=== PATIENT | male | born 1985 | race Caucasian/White ===

== ENCOUNTER 2019-05-13 16:36 | Inpatient (IN) | payer OTHER ==
[2019-05-13 23:22] VITALS: BMI 23.3
--- NOTE | 2019-05-14 02:11 | HP ---
COWS - Scale Resting Pulse: 1= [place] 81-100 Sweatin=Flushed/Facial Moisture Restless Observation: 1= Difficult to Sit Still Pupil Size: 1= Pupils >than Normal Bone or Joint Aches: 2= Severe Diffuse Aches Runny Nose/ Eye Tearin= Runny Nose/Eyes GI Upset > 30mins: 1= Stomach Cramp Tremor Observation: 2= Slight Tremor Visible Yawning Observation: 0= None Anxiety or Irritability: 4=Extreme Anxiety Goose Flesh Skin: 0=Smooth Skin COWS Score: 16 CIWA Score Nausea/Vomitin-Mild Nausea/No Vomiting Muscle Tremors: 3 Anxiety: 3 Agitation: 3 Paroxysmal Sweats: 2 Orientation: 1-Uncertain about Date Tacttile Disturbances: 0-None Auditory Disturbances: 0-None Visual Disturbances: 0-None Headache: 2-Mild CIWA-Ar Total Score: 15 - Admission Criteria [facility] Guidelines: Admission for Medically Managed Detox: Requires at least one of the followin. CIWA greater than 12 2. Seizures within the past 24 hours 3. Delirium tremens within the past 24 hours 4. Hallucinations within the past 24 hours 5. Acute intervention needed for co occurring medical disorder 6. Acute intervention needed for co occurring psychiatric disorder 7. Severe withdrawal that cannot be handled at a lower level of care (continued vomiting, continued diarrhea, abnormal vital signs) requiring intravenous medication and/or fluids 8. Admission ROS [facility] Chief Complaint: Alcohol and heroin withdrawal symptoms Allergies/Adverse Reactions: Allergies Allergy/AdvReac Type Severity Reaction Status Date / Time No Known Allergies Allergy Verified 05/13/19 23:14 History of Present Illness: 33 years old male with a long history of heroin and alcohol withdrawal symptoms is seeking admission to detox. Patient has been in previous detox and reports 2 years of sobriety. He denies medical history and suicidal ideation at this time. Patient reports multiple blackouts from alcohol and heroin use. This is his first admission to [facility]. Exam Limitations: No Limitations - Ebola screening Have you traveled outside of the country in the last 21 days: No Have you had contact with anyone from an Ebola affected area: No Do you have a fever: No - Review of Systems Constitutional: Chills EENT: reports: No Symptoms Reported Respiratory: reports: No Symptoms reported Cardiac: reports: No Symptoms Reported GI: reports: Nausea, Poor Appetite, Poor Fluid Intake, Abdominal cramping : reports: No Symptoms Reported Musculoskeletal: reports: Back Pain, Muscle Pain Integumentary: reports: Dryness, Flushing Neuro: reports: Headache, Tremors Endocrine: reports: No Symptoms Reported Hematology: reports: No Symptoms Reported Psychiatric: reports: No Sypmtoms Reported, Anxious, Depressed Other Systems: Reviewed and Negative Patient History - Patient Medical History Hx Anemia: No Hx Asthma: No Hx Chronic Obstructive Pulmonary Disease (COPD): No Hx Cancer: No Hx Hypertension: No Hx Hypercholesterolemia: No Hx Pacemaker: No HX Cerebrovascular Accident: No Hx Seizures: No Hx Dementia: No Hx Diabetes: No Hx Gastrointestinal Disorders: No Hx Liver Disease: No Hx Genitourinary Disorders: No Hx Sexually Transmitted Disorders: No Hx Renal Disease (ESRD): No Hx Thyroid Disease: No Hx Human Immunodeficiency Virus (HIV): No Hx Hepatitis C: No Hx Depression: No Hx Suicide Attempt: No Hx Bipolar Disorder: No Hx Schizophrenia: No - Patient Surgical History Past Surgical History: Yes Hx Orthopedic Surgery: Yes (ROTATOR CUFF SURGERY 2002) - PPD History Previous Implant?: Yes Documented Results: Negative w/o proof Implanted On Prior R Admission?: No PPD to be Administered?: Yes - Reproductive History Patient is a Female of Child Bearing Age (11 -55 yrs old): No (male) - Smoking Cessation Smoking history: Current every day smoker Have you smoked in the past 12 months: Yes Aproximately how many cigarettes per day: 20 Hx Chewing Tobacco Use: No Initiated information on smoking cessation: Yes 'Breaking Loose' booklet given: 05/14/19 - Substance & Tx. History Hx Alcohol Use: Yes Hx Substance Use: Yes Substance Use Type: Alcohol, Heroin Hx Substance Use Treatment: Yes ([facility]) - Substances abused Alcohol Substance route: Oral Frequency: Daily Amount used: LIQUOR- 2 PINTS, BEER- 1 SIX PACK Age of first use: 12 Date of last use: 05/13/19 Heroin Substance route: Injection Frequency: Daily Amount used: 10 BAGS Age of first use: 21 Date of last use: 05/13/19 Family Disease History - Family Disease History Family History: Denies Admission Physical Exam BHS - Vital Signs Vital Signs: Vital Signs - 24 hr 05/13/19 05/14/19 23:13 01:36 Temperature 98.5 F 98.5 F Pulse Rate 86 86 Respiratory 16 18 Rate Blood Pressure 109/71 109/71 - Physical General Appearance: Yes: Moderate Distress, Tremorous, Anxious HEENTM: Yes: Within Normal Limits Respiratory: Yes: Lungs Clear, Normal Breath Sounds, No Respiratory Distress Neck: Yes: Supple Breast: Yes: Breast Exam Deferred Cardiology: Yes: Regular Rhythm, Regular Rate Abdominal: Yes: Normal Bowel Sounds Genitourinary: Yes: Within Normal Limits Back: Yes: Normal Inspection Musculoskeletal: Yes: Back pain, Joint Stiffness, Muscle Pain Extremities: Yes: Swelling Neurological: Yes: Alert, Normal Mood/Affect Integumentary: Yes: Warm Lymphatic: Yes: Within Normal Limits - Diagnostic (1) Opioid dependence with withdrawal Current Visit: Yes Status: Chronic (2) Alcohol dependence with uncomplicated withdrawal Current Visit: Yes Status: Acute (3) Nicotine dependence Current Visit: Yes Status: Chronic Qualifiers: Nicotine product type: cigarettes Substance use status: uncomplicated Qualified Code(s): F17.210 - Nicotine dependence, cigarettes, uncomplicated Cleared for Admission [facility] - Detox or Rehab [facility] Level of Care: Medically Managed Detox Regimen/Protocol: Methadone/Librium Breathalyzer - Breathalyzer Breathalyzer: 0 Urine Drug Screen - Test Device Lot number: [id number] Expiration date: 02/24/21 - Control Is test valid?: Yes - Results Drug screen NEGATIVE: No Urine drug screen results: FEN-Fentanyl Inpatient Rehab Admission - Rehab Decision to Admit Inpatient rehab admission?: No
[2019-05-14] MEDS ORDERED: METHOCARBAMOL 500 MG TABLET PO PRN (02:20)
[2019-05-14] MEDS ORDERED: cloNIDine HCL 0.1 MG TABLET PO PRN (02:20)
[2019-05-14] MEDS ORDERED: MAGNESIUM CITRATE 300 ML BOTTLE PO PRN (02:20)
[2019-05-14] MEDS ORDERED: hydrOXYzine PAMOATE 25 MG CAPSULE (FP) PO PRN (02:20)
[2019-05-14] MEDS ORDERED: chlordiazePOXIDE HCL 25 MG CAPSULE PO PRN (02:20)
[2019-05-14] MEDS ORDERED: ACETAMINOPHEN 325 MG TABLET (FP) PO PRN ×2 (02:20)
[2019-05-14] MEDS ORDERED: MAG HYDROX/AL HYDROX/SIMETH 30 ML UNIT-DOSE CUP PO PRN (02:20)
[2019-05-14] MEDS ORDERED: METHADONE HCL 10 MG TABLET (FOR DETOX USE ONLY) PO ONE (02:20)
[2019-05-14] MEDS ORDERED: MENTHOL/PHENOL 1 EACH UD MM PRN (02:20)
[2019-05-14] MEDS ORDERED: BISMUTH SUBSALICYLATE 524 MG/30 ML UD PO PRN (02:20)
[2019-05-14] MEDS ORDERED: MAGNESIUM HYDROX 2400MG/30ML ORAL SUSPENSION 30 ML CUP PO PRN (02:20)
[2019-05-14] MEDS: IBUPROFEN 400 MG TABLET (FP) PO PRN (03:52)
[2019-05-14] MEDS: chlordiazePOXIDE HCL 25 MG CAPSULE PO SCH ×4 (06:22→22:15)
[2019-05-14] MEDS: NICOTINE 21 MG/24 HOURS TOPICAL PATCH TD SCH (10:20)
[2019-05-14] MEDS: PRENATAL VITAMINS W/ FOLIC ACID TABLET (FP) PO SCH (10:20)
--- NOTE | 2019-05-14 11:17 | PN ---
S CIWA - CIWA Score Nausea/Vomitin-Mild Nausea/No Vomiting Muscle Tremors: 4-Moderate,w/Arms Extend Anxiety: 4-Mod. Anxious/Guarded Agitation: 4-Moderately Restless Paroxysmal Sweats: 1-Minimal Palms Moist Orientation: 0-Oriented Tacttile Disturbances: 0-None Auditory Disturbances: 0-None Visual Disturbances: 0-None Headache: 0-None Present CIWA-Ar Total Score: 14 BHS COWS - Scale Resting Pulse: 0= [place] 80 or Below Sweatin= Chills/Flushing Restless Observation: 0= Sits Still Pupil Size: 0= Normal to Room Light Bone or Joint Aches: 1= Mild Discomfort Runny Nose/ Eye Tearin= Nasal Congestion GI Upset > 30mins: 2= Nausea/Diarrhea Tremor Observation of Outstretched Hands: 2= Slight Tremor Visible Yawning Observation: 2= >3x During Session Anxiety or Irritability: 2=Irritable/Anxious Goose Flesh Skin: 3=Piloerection COWS Score: 14 S Progress Note (SOAP) Subjective: 33 years old male admitted on 05/14/19 for alcohol and opiate withdrawal sx feeling little better after received methadone and librium feeling tired prefers to sleep after breakfast Objective: 05/14/19 11:25 Vital Signs Temperature 98.1 F 05/14/19 09:09 Pulse Rate 80 05/14/19 09:09 Respiratory Rate 18 05/14/19 09:09 Blood Pressure 101/59 L 05/14/19 09:09 O2 Sat by Pulse Oximetry (%) 05/14/19 11:25 lab ordered for 05/16/19 Assessment: 05/14/19 11:26 alcohol and opiate withdrawal sx Plan: continue alcohol and opiate detox
--- NOTE | 2019-05-14 14:45 | EKG ---
Test Reason : Blood Pressure : / mmHG Vent. Rate : 086 BPM Atrial Rate : 086 BPM P-R Int : 118 ms QRS Dur : 094 ms QT Int : 406 ms P-R-T Axes : 062 071 049 degrees QTc Int : 485 ms NORMAL SINUS RHYTHM PROLONGED QT ABNORMAL ECG NO PREVIOUS ECGS AVAILABLE Confirmed by Herman Barahona MD ([id number]) on 05/14/2019 2:45:31 PM Referred By: RAMESH Confirmed By:Herman Barahona MD
[2019-05-14 17:08] LABS: PH,URINE 8.5 (5.0-8.0); URINE APPEARANCE CLEAR; URINE BILIRUBIN NEGATIVE (NEGATIVE); URINE COLOR YELLOW; URINE GLUCOSE (UA) NEGATIVE (NEGATIVE); URINE KETONE NEGATIVE (NEGATIVE); URINE LEUK ESTERASE NEGATIVE (NEGATIVE); URINE NITRITE NEGATIVE (NEGATIVE); URINE PROTEIN NEGATIVE (NEGATIVE)
[2019-05-14] MEDS: NICOTINE POLACRILEX 2 MG GUM BUC PRN (17:26)
[2019-05-14] MEDS: THIAMINE HCL 100 MG TABLET (FP) PO SCH (22:15)
[2019-05-15] MEDS: chlordiazePOXIDE HCL 25 MG CAPSULE PO SCH ×4 (06:47→22:42)
[2019-05-15] MEDS ORDERED: METHADONE HCL 10 MG TABLET (FOR DETOX USE ONLY) ONE (08:55)
[2019-05-15] MEDS ORDERED: METHADONE HCL 5 MG TABLET (FOR DETOX USE ONLY) ONE (08:56)
[2019-05-15 09:47] LABS: HEMATOCRIT 38.5 % (35.4-49); HEMOGLOBIN 13.4 GM/dL (11.7-16.9); MCH 29.9 pg (25.7-33.7); MCHC 34.8 g/dl (32.0-35.9); MEAN CELL VOLUME 86.1 fl (80-96); MEAN PLT VOLUME 8.7 fl (7.5-11.1); PLATELET COUNT 239 K/MM3 (134-434); RBC 4.48 M/mm3 (4.00-5.60); RDW 12.2 % (11.9-15.9); WHITE BLOOD COUNT 5.2 K/mm3 (4.0-10.0)
[2019-05-15 09:55] LABS: ALBUMIN 3.7 g/dl (3.4-5.0); BILIRUBIN,TOTAL 0.5 mg/dL (0.2-1); BLOOD UREA NITROGEN 15.6 mg/dL (7-18); CALCIUM 9.3 mg/dL (8.5-10.1); POTASSIUM 4.7 mmol/L (3.5-5.1); TOT PROT 6.1 g/dl (6.4-8.2)
[2019-05-15] MEDS ORDERED: METHADONE (DETOX) 20 MG, METHADONE (DETOX) 5 MG PO ONE (10:00)
[2019-05-15] MEDS: PRENATAL VITAMINS W/ FOLIC ACID TABLET (FP) PO SCH (10:09)
[2019-05-15] MEDS: NICOTINE 21 MG/24 HOURS TOPICAL PATCH TD SCH (10:12)
[2019-05-15] MEDS: NICOTINE POLACRILEX 2 MG GUM BUC PRN (10:12)
--- NOTE | 2019-05-15 14:34 | PN ---
S CIWA - CIWA Score Nausea/Vomitin-Mild Nausea/No Vomiting Muscle Tremors: 2 Anxiety: 3 Agitation: 2 Paroxysmal Sweats: 1-Minimal Palms Moist Orientation: 1-Uncertain about Date Tacttile Disturbances: 1-Very Mild Itch/Numbness Auditory Disturbances: 0-None Visual Disturbances: 0-None Headache: 0-None Present CIWA-Ar Total Score: 11 BHS COWS - Scale Resting Pulse: 0= [place] 80 or Below Sweatin= Chills/Flushing Restless Observation: 0= Sits Still Pupil Size: 0= Normal to Room Light Bone or Joint Aches: 1= Mild Discomfort Runny Nose/ Eye Tearin= Nasal Congestion GI Upset > 30mins: 2= Nausea/Diarrhea Tremor Observation of Outstretched Hands: 2= Slight Tremor Visible Yawning Observation: 2= >3x During Session Anxiety or Irritability: 2=Irritable/Anxious Goose Flesh Skin: 0=Smooth Skin COWS Score: 11 [facility] Progress Note (SOAP) Subjective: body aches tremor but doing better than yesterday ambulating on hallway social with peers in day room Objective: 05/15/19 14:32 Vital Signs Temperature 97.8 F 05/15/19 13:18 Pulse Rate 61 05/15/19 13:18 Respiratory Rate 18 05/15/19 13:18 Blood Pressure 93/64 05/15/19 13:18 O2 Sat by Pulse Oximetry (%) Laboratory Last Values WBC 5.2 K/mm3 (4.0-10.0) 05/15/19 07:00 RBC 4.48 M/mm3 (4.00-5.60) 05/15/19 07:00 Hgb 13.4 GM/dL (11.7-16.9) 05/15/19 07:00 Hct 38.5 % (35.4-49) 05/15/19 07:00 MCV 86.1 fl (80-96) 05/15/19 07:00 MCH 29.9 pg (25.7-33.7) 05/15/19 07:00 MCHC 34.8 g/dl (32.0-35.9) 05/15/19 07:00 RDW 12.2 % (11.9-15.9) 05/15/19 07:00 Plt Count 239 K/MM3 (134-434) 05/15/19 07:00 MPV 8.7 fl (7.5-11.1) 05/15/19 07:00 Sodium 142 mmol/L (136-145) 05/15/19 07:00 Potassium 4.7 mmol/L (3.5-5.1) 05/15/19 07:00 Chloride 109 mmol/L (98-107) H 05/15/19 07:00 Carbon Dioxide 31 mmol/L (21-32) 05/15/19 07:00 Anion Gap 2 MMOL/L (8-16) L 05/15/19 07:00 BUN 15.6 mg/dL (7-18) 05/15/19 07:00 Creatinine 1.0 mg/dL (0.55-1.3) 05/15/19 07:00 Est GFR (CKD-EPI)AfAm 114.11 05/15/19 07:00 Est GFR (CKD-EPI)NonAf 98.45 05/15/19 07:00 Random Glucose 93 mg/dL (74-106) 05/15/19 07:00 Calcium 9.3 mg/dL (8.5-10.1) 05/15/19 07:00 Total Bilirubin 0.5 mg/dL (0.2-1) 05/15/19 07:00 AST 9 U/L (15-37) L 05/15/19 07:00 ALT 23 U/L (13-61) 05/15/19 07:00 Alkaline Phosphatase 51 U/L (45-117) 05/15/19 07:00 Total Protein 6.1 g/dl (6.4-8.2) L 05/15/19 07:00 Albumin 3.7 g/dl (3.4-5.0) 05/15/19 07:00 Urine Color Yellow 05/14/19 13:40 Urine Appearance Clear 05/14/19 13:40 Urine pH 8.5 (5.0-8.0) H 05/14/19 13:40 Ur Specific [place] 1.010 (1.010-1.035) 05/14/19 13:40 Urine Protein Negative (NEGATIVE) 05/14/19 13:40 Urine Glucose (UA) Negative (NEGATIVE) 05/14/19 13:40 Urine Ketones Negative (NEGATIVE) 05/14/19 13:40 Urine Blood Negative (NEGATIVE) 05/14/19 13:40 Urine Nitrite Negative (NEGATIVE) 05/14/19 13:40 Urine Bilirubin Negative (NEGATIVE) 05/14/19 13:40 Urine Urobilinogen 1.0 mg/dL (0.2-1.0) 05/14/19 13:40 Ur Leukocyte Esterase Negative (NEGATIVE) 05/14/19 13:40 RPR Titer Nonreactive (NONREACTIVE) 05/15/19 07:00 lab noted Assessment: 05/15/19 14:32 alcohol and opiate withdrawal sx Plan: continue alcohol and opiate detox
[2019-05-15] MEDS: IBUPROFEN 400 MG TABLET (FP) PO PRN (19:04)
[2019-05-15] MEDS: THIAMINE HCL 100 MG TABLET (FP) PO SCH (22:39)
[2019-05-15] MEDS: MELATONIN 5 MG TABLETS PO PRN (22:41)
[2019-05-16] MEDS ORDERED: chlordiazePOXIDE HCL 10 MG CAPSULE PO PRN
[2019-05-16] MEDS: chlordiazePOXIDE HCL 10 MG CAPSULE PO SCH ×4 (05:35→22:40)
[2019-05-16] MEDS ORDERED: METHADONE HCL 10 MG TABLET (FOR DETOX USE ONLY) PO ONE (10:00)
[2019-05-16] MEDS: PRENATAL VITAMINS W/ FOLIC ACID TABLET (FP) PO SCH (10:04)
[2019-05-16] MEDS: NICOTINE 21 MG/24 HOURS TOPICAL PATCH TD SCH (10:05)
[2019-05-16] MEDS: NICOTINE POLACRILEX 2 MG GUM BUC PRN ×2 (10:07→18:14)
--- NOTE | 2019-05-16 12:09 | PN ---
S CIWA - CIWA Score Nausea/Vomitin-No Nausea/No Vomiting Muscle Tremors: 3 Anxiety: 3 Agitation: 2 Paroxysmal Sweats: 1-Minimal Palms Moist Orientation: 0-Oriented Tacttile Disturbances: 0-None Auditory Disturbances: 0-None Visual Disturbances: 0-None Headache: 0-None Present CIWA-Ar Total Score: 9 BHS COWS - Scale Resting Pulse: 0= [place] 80 or Below Sweatin= Chills/Flushing Restless Observation: 0= Sits Still Pupil Size: 0= Normal to Room Light Bone or Joint Aches: 1= Mild Discomfort Runny Nose/ Eye Tearin= Nasal Congestion GI Upset > 30mins: 1= Stomach Cramp Tremor Observation of Outstretched Hands: 1= Tremor [place], Not Seen Yawning Observation: 2= >3x During Session Anxiety or Irritability: 1=Feels Anxious/Irritable Goose Flesh Skin: 0=Smooth Skin COWS Score: 8 B[facility] Progress Note (SOAP) Subjective: patient is doing good with librium and methadone detox regimen feeling tired after medication recommend skip one dose in between dosages if necessary patient is able to ambulating on hallway today and eat breakfast and lunch with peers in day room Objective: 05/16/19 12:16 Vital Signs Temperature 97.0 F L 05/16/19 09:12 Pulse Rate 66 05/16/19 09:12 Respiratory Rate 18 05/16/19 09:12 Blood Pressure 87/54 L 05/16/19 09:12 O2 Sat by Pulse Oximetry (%) Laboratory Last Values WBC 5.2 K/mm3 (4.0-10.0) 05/15/19 07:00 RBC 4.48 M/mm3 (4.00-5.60) 05/15/19 07:00 Hgb 13.4 GM/dL (11.7-16.9) 05/15/19 07:00 Hct 38.5 % (35.4-49) 05/15/19 07:00 MCV 86.1 fl (80-96) 05/15/19 07:00 MCH 29.9 pg (25.7-33.7) 05/15/19 07:00 MCHC 34.8 g/dl (32.0-35.9) 05/15/19 07:00 RDW 12.2 % (11.9-15.9) 05/15/19 07:00 Plt Count 239 K/MM3 (134-434) 05/15/19 07:00 MPV 8.7 fl (7.5-11.1) 05/15/19 07:00 Sodium 142 mmol/L (136-145) 05/15/19 07:00 Potassium 4.7 mmol/L (3.5-5.1) 05/15/19 07:00 Chloride 109 mmol/L (98-107) H 05/15/19 07:00 Carbon Dioxide 31 mmol/L (21-32) 05/15/19 07:00 Anion Gap 2 MMOL/L (8-16) L 05/15/19 07:00 BUN 15.6 mg/dL (7-18) 05/15/19 07:00 Creatinine 1.0 mg/dL (0.55-1.3) 05/15/19 07:00 Est GFR (CKD-EPI)AfAm 114.11 05/15/19 07:00 Est GFR (CKD-EPI)NonAf 98.45 05/15/19 07:00 Random Glucose 93 mg/dL (74-106) 05/15/19 07:00 Calcium 9.3 mg/dL (8.5-10.1) 05/15/19 07:00 Total Bilirubin 0.5 mg/dL (0.2-1) 05/15/19 07:00 AST 9 U/L (15-37) L 05/15/19 07:00 ALT 23 U/L (13-61) 05/15/19 07:00 Alkaline Phosphatase 51 U/L (45-117) 05/15/19 07:00 Total Protein 6.1 g/dl (6.4-8.2) L 05/15/19 07:00 Albumin 3.7 g/dl (3.4-5.0) 05/15/19 07:00 Urine Color Yellow 05/14/19 13:40 Urine Appearance Clear 05/14/19 13:40 Urine pH 8.5 (5.0-8.0) H 05/14/19 13:40 Ur Specific [place] 1.010 (1.010-1.035) 05/14/19 13:40 Urine Protein Negative (NEGATIVE) 05/14/19 13:40 Urine Glucose (UA) Negative (NEGATIVE) 05/14/19 13:40 Urine Ketones Negative (NEGATIVE) 05/14/19 13:40 Urine Blood Negative (NEGATIVE) 05/14/19 13:40 Urine Nitrite Negative (NEGATIVE) 05/14/19 13:40 Urine Bilirubin Negative (NEGATIVE) 05/14/19 13:40 Urine Urobilinogen 1.0 mg/dL (0.2-1.0) 05/14/19 13:40 Ur Leukocyte Esterase Negative (NEGATIVE) 05/14/19 13:40 RPR Titer Nonreactive (NONREACTIVE) 05/15/19 07:00 lab noted Assessment: 05/16/19 12:17 alcohol and opiate withdrawal sx Plan: continue alcohol and opiate detox
[2019-05-16] MEDS: IBUPROFEN 400 MG TABLET (FP) PO PRN (18:14)
[2019-05-16] MEDS: THIAMINE HCL 100 MG TABLET (FP) PO SCH (22:40)
[2019-05-17] MEDS: chlordiazePOXIDE HCL 10 MG CAPSULE PO SCH ×2 (05:15→17:41)
[2019-05-17] MEDS: PRENATAL VITAMINS W/ FOLIC ACID TABLET (FP) PO SCH (09:51)
[2019-05-17] MEDS: NICOTINE 21 MG/24 HOURS TOPICAL PATCH TD SCH (09:52)
[2019-05-17] MEDS: NICOTINE POLACRILEX 2 MG GUM BUC PRN ×2 (09:53→17:42)
[2019-05-17] MEDS ORDERED: METHADONE (DETOX) 10 MG, METHADONE (DETOX) 5 MG PO ONE (10:00)
[2019-05-17] MEDS ORDERED: METHADONE HCL 10 MG TABLET (FOR DETOX USE ONLY) PO ONE (10:00)
--- NOTE | 2019-05-17 15:06 | PN ---
[facility] CIWA - CIWA Score Nausea/Vomitin-No Nausea/No Vomiting Muscle Tremors: None Anxiety: 3 Agitation: 2 Paroxysmal Sweats: 1-Minimal Palms Moist Orientation: 0-Oriented Tacttile Disturbances: 1-Very Mild Itch/Numbness Auditory Disturbances: 0-None Visual Disturbances: 2-Mild Sensitivity Headache: 0-None Present CIWA-Ar Total Score: 9 BHS COWS - Scale Resting Pulse: 0= [place] 80 or Below Sweatin= Chills/Flushing Restless Observation: 1= Difficult to Sit Still Pupil Size: 0= Normal to Room Light Bone or Joint Aches: 0= None Runny Nose/ Eye Tearin= None GI Upset > 30mins: 0= None Tremor Observation of Outstretched Hands: 0= None Yawning Observation: 1= 1-2x During Session Anxiety or Irritability: 2=Irritable/Anxious Goose Flesh Skin: 3=Piloerection COWS Score: 8 [facility] Progress Note (SOAP) Subjective: Anxious, Sweating. Patient reports That Current withdrawal Detox Symptoms in General Are Gradually Subsiding in Severity. Objective: PATIENT A & O X 3, OBSERVED AMBULATING ON UNIT UNASSISTED. IN NO ACUTE DISTRESS. 05/17/19 15:05 Vital Signs Temperature 96.8 F L 05/17/19 13:54 Pulse Rate 54 L 05/17/19 13:54 Respiratory Rate 18 05/17/19 13:54 Blood Pressure 95/57 L 05/17/19 13:54 O2 Sat by Pulse Oximetry (%) Laboratory Tests 05/14/19 05/15/19 05/15/19 13:40 07:00 07:00 WBC 5.2 RBC 4.48 Hgb 13.4 Hct 38.5 MCV 86.1 MCH 29.9 MCHC 34.8 RDW 12.2 Plt Count 239 MPV 8.7 Sodium 142 Potassium 4.7 Chloride 109 H Carbon Dioxide 31 Anion Gap 2 L BUN 15.6 Creatinine 1.0 Est GFR (CKD-EPI)AfAm 114.11 Est GFR (CKD-EPI)NonAf 98.45 Random Glucose 93 Calcium 9.3 Total Bilirubin 0.5 AST 9 L ALT 23 Alkaline Phosphatase 51 Total Protein 6.1 L Albumin 3.7 Urine Color Yellow Urine Appearance Clear Urine pH 8.5 H Ur Specific [place] 1.010 Urine Protein Negative Urine Glucose (UA) Negative Urine Ketones Negative Urine Blood Negative Urine Nitrite Negative Urine Bilirubin Negative Urine Urobilinogen 1.0 Ur Leukocyte Esterase Negative RPR Titer 05/15/19 07:00 WBC RBC Hgb Hct MCV MCH MCHC RDW Plt Count MPV Sodium Potassium Chloride Carbon Dioxide Anion Gap BUN Creatinine Est GFR (CKD-EPI)AfAm Est GFR (CKD-EPI)NonAf Random Glucose Calcium Total Bilirubin AST ALT Alkaline Phosphatase Total Protein Albumin Urine Color Urine Appearance Urine pH Ur Specific [place] Urine Protein Urine Glucose (UA) Urine Ketones Urine Blood Urine Nitrite Urine Bilirubin Urine Urobilinogen Ur Leukocyte Esterase RPR Titer Nonreactive LABS NOTED. Assessment: 05/17/19 15:05 WITHDRAWAL SYMPTOMS. Plan: CONTINUE DETOX. INCREASE DAILY PO WATER INTAKE.
[2019-05-17] MEDS: THIAMINE HCL 100 MG TABLET (FP) PO SCH (22:11)
[2019-05-18] MEDS ORDERED: chlordiazePOXIDE HCL 10 MG CAPSULE PO ONE (05:00)
[2019-05-18] MEDS ORDERED: METHADONE HCL 10 MG TABLET (FOR DETOX USE ONLY) PO ONE (10:00)
[2019-05-18] MEDS: NICOTINE 21 MG/24 HOURS TOPICAL PATCH TD SCH (10:23)
[2019-05-18] MEDS: PRENATAL VITAMINS W/ FOLIC ACID TABLET (FP) PO SCH (10:23)
--- NOTE | 2019-05-18 18:54 | PN ---
S CIWA - CIWA Score Nausea/Vomitin-No Nausea/No Vomiting Muscle Tremors: None Anxiety: 3 Agitation: 1-Slight > Activity Paroxysmal Sweats: No Perspiration Orientation: 0-Oriented Tacttile Disturbances: 1-Very Mild Itch/Numbness Auditory Disturbances: 0-None Visual Disturbances: 0-None Headache: 0-None Present CIWA-Ar Total Score: 5 S COWS - Scale Resting Pulse: 0= [place] 80 or Below Sweatin= No chills or Flushing Restless Observation: 1= Difficult to Sit Still Pupil Size: 0= Normal to Room Light Bone or Joint Aches: 0= None Runny Nose/ Eye Tearin= None GI Upset > 30mins: 0= None Tremor Observation of Outstretched Hands: 0= None Yawning Observation: 1= 1-2x During Session Anxiety or Irritability: 2=Irritable/Anxious Goose Flesh Skin: 0=Smooth Skin COWS Score: 4 S Progress Note (SOAP) Subjective: Anxious (Mild). Objective: PATIENT A & O X 3, OBSERVED AMBULATING ON UNIT WITH ASSISTANCE OF A CANE. IN NO ACUTE DISTRESS. 05/18/19 18:54 Vital Signs Temperature 97 F L 05/18/19 18:32 Pulse Rate 66 05/18/19 18:32 Respiratory Rate 17 05/18/19 18:32 Blood Pressure 104/66 05/18/19 18:32 O2 Sat by Pulse Oximetry (%) Laboratory Tests 05/14/19 05/15/19 05/15/19 13:40 07:00 07:00 WBC 5.2 RBC 4.48 Hgb 13.4 Hct 38.5 MCV 86.1 MCH 29.9 MCHC 34.8 RDW 12.2 Plt Count 239 MPV 8.7 Sodium 142 Potassium 4.7 Chloride 109 H Carbon Dioxide 31 Anion Gap 2 L BUN 15.6 Creatinine 1.0 Est GFR (CKD-EPI)AfAm 114.11 Est GFR (CKD-EPI)NonAf 98.45 Random Glucose 93 Calcium 9.3 Total Bilirubin 0.5 AST 9 L ALT 23 Alkaline Phosphatase 51 Total Protein 6.1 L Albumin 3.7 Urine Color Yellow Urine Appearance Clear Urine pH 8.5 H Ur Specific [place] 1.010 Urine Protein Negative Urine Glucose (UA) Negative Urine Ketones Negative Urine Blood Negative Urine Nitrite Negative Urine Bilirubin Negative Urine Urobilinogen 1.0 Ur Leukocyte Esterase Negative RPR Titer 05/15/19 07:00 WBC RBC Hgb Hct MCV MCH MCHC RDW Plt Count MPV Sodium Potassium Chloride Carbon Dioxide Anion Gap BUN Creatinine Est GFR (CKD-EPI)AfAm Est GFR (CKD-EPI)NonAf Random Glucose Calcium Total Bilirubin AST ALT Alkaline Phosphatase Total Protein Albumin Urine Color Urine Appearance Urine pH Ur Specific [place] Urine Protein Urine Glucose (UA) Urine Ketones Urine Blood Urine Nitrite Urine Bilirubin Urine Urobilinogen Ur Leukocyte Esterase RPR Titer Nonreactive LABS NOTED. Assessment: 05/18/19 18:54 WITHDRAWAL SYMPTOMS. Plan: CONTINUE DETOX. PATIENT SCHEDULED FOR D/C FROM DETOX UNIT TOMORROW.
[2019-05-18] MEDS: NICOTINE POLACRILEX 2 MG GUM BUC PRN (19:32)
[2019-05-18] MEDS: THIAMINE HCL 100 MG TABLET (FP) PO SCH (22:43)
[2019-05-18] MEDS: MELATONIN 5 MG TABLETS PO PRN (22:43)
[2019-05-19] MEDS ORDERED: METHADONE HCL 5 MG TABLET (FOR DETOX USE ONLY) PO ONE (06:00)
[2019-05-19 09:19] VITALS: BP 90/62; PULSE 60; TEMP 98.3
[2019-05-19] MEDS: NICOTINE 21 MG/24 HOURS TOPICAL PATCH TD SCH (09:31)
[2019-05-19] MEDS: PRENATAL VITAMINS W/ FOLIC ACID TABLET (FP) PO SCH (09:32)
--- NOTE | 2019-05-19 15:23 | DS ---
[facility] Detox Discharge Summary Admission Date: 05/14/19 Discharge Date: 05/19/19 - History Present History: Alcohol Dependence Additional Comments: 33 years old male admitted on 05/14/19 for acute alcohol and opiate withdrawal sx management no complication throughout the detox stay alert oriented x 3 no chest pain no shortness of breath no dizziness patient prefers to go to [facility] near his resident - Physical Exam Results Vital Signs: Vital Signs Temperature 98.3 F 05/19/19 09:18 Pulse Rate 60 05/19/19 09:18 Respiratory Rate 18 05/19/19 09:18 Blood Pressure 90/62 05/19/19 09:18 O2 Sat by Pulse Oximetry (%) Pertinent Admission Physical Exam Findings: alcohol and opiate withdrawal sx Laboratory Last Values WBC 5.2 K/mm3 (4.0-10.0) 05/15/19 07:00 RBC 4.48 M/mm3 (4.00-5.60) 05/15/19 07:00 Hgb 13.4 GM/dL (11.7-16.9) 05/15/19 07:00 Hct 38.5 % (35.4-49) 05/15/19 07:00 MCV 86.1 fl (80-96) 05/15/19 07:00 MCH 29.9 pg (25.7-33.7) 05/15/19 07:00 MCHC 34.8 g/dl (32.0-35.9) 05/15/19 07:00 RDW 12.2 % (11.9-15.9) 05/15/19 07:00 Plt Count 239 K/MM3 (134-434) 05/15/19 07:00 MPV 8.7 fl (7.5-11.1) 05/15/19 07:00 Sodium 142 mmol/L (136-145) 05/15/19 07:00 Potassium 4.7 mmol/L (3.5-5.1) 05/15/19 07:00 Chloride 109 mmol/L (98-107) H 05/15/19 07:00 Carbon Dioxide 31 mmol/L (21-32) 05/15/19 07:00 Anion Gap 2 MMOL/L (8-16) L 05/15/19 07:00 BUN 15.6 mg/dL (7-18) 05/15/19 07:00 Creatinine 1.0 mg/dL (0.55-1.3) 05/15/19 07:00 Est GFR (CKD-EPI)AfAm 114.11 05/15/19 07:00 Est GFR (CKD-EPI)NonAf 98.45 05/15/19 07:00 Random Glucose 93 mg/dL (74-106) 05/15/19 07:00 Calcium 9.3 mg/dL (8.5-10.1) 05/15/19 07:00 Total Bilirubin 0.5 mg/dL (0.2-1) 05/15/19 07:00 AST 9 U/L (15-37) L 05/15/19 07:00 ALT 23 U/L (13-61) 05/15/19 07:00 Alkaline Phosphatase 51 U/L (45-117) 05/15/19 07:00 Total Protein 6.1 g/dl (6.4-8.2) L 05/15/19 07:00 Albumin 3.7 g/dl (3.4-5.0) 05/15/19 07:00 Urine Color Yellow 05/14/19 13:40 Urine Appearance Clear 05/14/19 13:40 Urine pH 8.5 (5.0-8.0) H 05/14/19 13:40 Ur Specific [place] 1.010 (1.010-1.035) 05/14/19 13:40 Urine Protein Negative (NEGATIVE) 05/14/19 13:40 Urine Glucose (UA) Negative (NEGATIVE) 05/14/19 13:40 Urine Ketones Negative (NEGATIVE) 05/14/19 13:40 Urine Blood Negative (NEGATIVE) 05/14/19 13:40 Urine Nitrite Negative (NEGATIVE) 05/14/19 13:40 Urine Bilirubin Negative (NEGATIVE) 05/14/19 13:40 Urine Urobilinogen 1.0 mg/dL (0.2-1.0) 05/14/19 13:40 Ur Leukocyte Esterase Negative (NEGATIVE) 05/14/19 13:40 RPR Titer Nonreactive (NONREACTIVE) 05/15/19 07:00 lab noted - Treatment Hospital Course: Detox Protocol Followed, Detoxed Safely, Responded well, Discharged Condition Good, Rehab Referral Accepted Patient has Accepted a Rehab Referral to[facility] - Medication Discharge Medications: Ambulatory Orders NK [No Known Home Medication] 05/13/19 - Diagnosis (1) Opioid dependence with withdrawal Status: Acute (2) Alcohol dependence with uncomplicated withdrawal Status: Acute (3) Nicotine dependence Status: Acute Qualifiers: Nicotine product type: cigarettes Substance use status: in withdrawal Qualified Code(s): F17.213 - Nicotine dependence, cigarettes, with withdrawal - AMA Did Patient Leave Against Medical Advice: No
== END 2019-05-19 09:30 | disposition home or self-care (01) | DRG 773 ==
LOC: YASAS 16:36 → Y3N 05-14 02:43
PROVIDERS: ADMIT Surgery; ATTEND Surgery
PROC: HZ2ZZZZ Detoxification Services for Substance Abuse Treatment (ICD-10-PCS; principal; 2019-05-14)
DX: F11.23 Opioid dependence with withdrawal (principal); F10.230 Alcohol dependence with withdrawal, uncomplicated; F17.213 Nicotine dependence, cigarettes, with withdrawal
CPT/HCPCS: 36415; 80053; 81003; 85027; 86593; 93005; 93010